=== PATIENT | male | born 1970 | race Caucasian/White ===

== ENCOUNTER 2018-07-31 06:56 | Emergency (ER) | payer BC ==
[~2018-07-31] VITALS: Ht 190.5 cm; Wt 97.5 kg
[2018-07-31 08:02] LABS: BASO % 0.2 % (0.0-1.0); EOS # 0.1 10*3/uL (0.0-0.4); EOS % 1.9 % (1.0-4.0); HEMATOCRIT 47.8 % (42.0-52.0); HEMOGLOBIN 17.1 g/dl (14.0-18.0); LYMPH % 17.6 % (27.0-41.0); MEAN CELL VOLUME 90.5 fl (80.0-94.0); MEAN CORPUSCULAR HGB 32.4 pg (27.0-31.0); MEAN CORPUSCULAR HGB CONC 35.8 g/dl (33.0-37.0); MEAN PLATELET VOLUME 10.6 fl (9.6-12.3); MONO # 0.5 10*3/uL (0.1-1.0); MONO % 9.2 % (3.0-9.0); NEUT # 4.1 10*3/uL (2.3-7.9); NEUT % 70.9 % (47.0-73.0); PLATELET COUNT AUTOMATED 183 10*3/uL (130-400); RED BLOOD COUNT 5.28 10*6/uL (4.50-5.90); RED CELL DISTRI WIDTH 12.5 % (0-14.5); WHITE BLOOD COUNT 5.8 10*3/uL (4.8-10.8)
[2018-07-31 08:19] LABS: ALBUMIN 4.3 gm/dl (3.1-4.5); ALKALINE PHOSPHATASE 69 U/L (45-117); BUN 10 mg/dl (7-24); CHLORIDE 105 mmol/L (98-107); CREATININE 0.82 mg/dL (0.70-1.30); LIPASE 234 U/L (73-393); POTASSIUM 4.2 mmol/L (3.5-5.1); SGOT/AST 20 IU/L (3-35); SGPT/ALT 32 U/L (12-78); SODIUM 139 mmol/L (136-145)
[2018-07-31] MEDS ORDERED: ZOFRAN ODT4 MG SL (09:32)
[2018-07-31] MEDS ORDERED: Motrin,Rufen800 MG PO (09:32)
== END 2018-07-31 09:44 | disposition home or self-care (01) ==
LOC: ED 06:56
PROVIDERS: Emergency Medicine
DX: H10.9 Unspecified conjunctivitis (principal); B34.9 Viral infection, unspecified

== ENCOUNTER → 2020-09-14 | Outpatient (CLI) | payer SELFPAY ==
[~2020-09-14] MED LIST: Motrin,Rufen800 MG PO; ZOFRAN ODT4 MG SL
== END | disposition home or self-care (01) ==
LOC: COVID19 12:56
PROVIDERS: ATTEND Family Medicine
DX: Z20.828 Contact with and (suspected) exposure to other viral communicable diseases (principal)

== ENCOUNTER → 2021-05-30 | Outpatient (CLI) | payer OTHER | END | disposition home or self-care (01) | LOC: COVID19 16:41 | PROVIDERS: ATTEND Internal Medicine | DX: Z11.52 Encounter for screening for COVID-19 (principal) ==

== ENCOUNTER 2023-01-25 04:46 | Emergency (ER) | payer OTHER ==
[~2023-01-25] VITALS: Ht 190.5 cm; Wt 90.7 kg
[2023-01-25] MEDS ORDERED: DIAZEPAM5 MG PO (04:53)
[2023-01-25] MEDS ORDERED: HYDROCODONE-AC1 EAC1 PO (06:11)
== END 2023-01-25 06:15 | disposition home or self-care (01) ==
LOC: ED 04:46
DX: S05.01XA Injury of conjunctiva and corneal abrasion without foreign body, right eye, initial encounter (principal); X58.XXXA Exposure to other specified factors, initial encounter; Y93.89 Activity, other specified; Y92.89 Other specified places as the place of occurrence of the external cause; Y99.8 Other external cause status

== ENCOUNTER 2023-03-14 07:45 | Emergency (ER) | payer OTHER ==
[~2023-03-14] VITALS: Ht 190.5 cm; Wt 90.7 kg
[~2023-03-14 07:45] MED LIST changes: +DIAZEPAM5 MG PO; +HYDROCODONE-AC1 EAC1 PO
[2023-03-14] MEDS ORDERED: MELOXICAM15 MG PO (08:21)
== END 2023-03-14 08:40 | disposition home or self-care (01) ==
LOC: ED 07:45
DX: S63.91XA Sprain of unspecified part of right wrist and hand, initial encounter (principal); X58.XXXA Exposure to other specified factors, initial encounter; Y93.89 Activity, other specified; Y92.89 Other specified places as the place of occurrence of the external cause; Y99.8 Other external cause status

== ENCOUNTER 2023-07-06 10:26 | Emergency (ER) | payer OTHER ==
[~2023-07-06] VITALS: Ht 190.5 cm; Wt 90.7 kg
[~2023-07-06 10:26] MED LIST changes: +MELOXICAM15 MG PO
[2023-07-06] MEDS ORDERED: VALIUM5 MG PO (11:00)
[2023-07-06] MEDS ORDERED: PROPRANOLOL HCL10 MG PO (11:01)
[2023-07-06] MEDS ORDERED: HYDROCODONE-AC1 EAC1 PO (11:12)
== END 2023-07-06 11:35 | disposition home or self-care (01) ==
LOC: ED 10:26
DX: M54.42 Lumbago with sciatica, left side (principal); M79.605 Pain in left leg

== ENCOUNTER 2025-02-09 20:45 | Emergency (ER) | payer SELFPAY ==
[~2025-02-09] VITALS: Ht 177.8 cm; Wt 86.2 kg
[~2025-02-09 20:45] MED LIST changes: +PROPRANOLOL HCL10 MG PO; +VALIUM5 MG PO
[2025-02-09] MEDS ORDERED: SODIUM CHLORIDE 0.9% 1,000 ML IV ONE (20:50)
[2025-02-09] MEDS ORDERED: diphenhydrAMINE hydrochloride 50 MG/ML VIAL IV ONE (20:50)
[2025-02-09] MEDS ORDERED: Ketorolac Tromethamine 30 MG/ML VIAL IV ONE (20:50)
[2025-02-09] MEDS ORDERED: Ondansetron Hydrochloride 4 MG/2 ML VIAL IV ONE (20:50)
[2025-02-09] MEDS ORDERED: HYDROmorphone Hydrochloride 1 MG/ML SYR IV ONE (23:10)
== END 2025-02-10 | disposition home or self-care (01) ==
LOC: ED 20:45
DX: R51.9 Headache, unspecified (principal); M79.2 Neuralgia and neuritis, unspecified; R11.0 Nausea; H53.149 Visual discomfort, unspecified; Z79.899 Other long term (current) drug therapy

== ENCOUNTER → 2025-07-31 | Outpatient (CLI) | payer OTHER ==
[2025-07-31 09:37] LABS: BASO # 0.0 10*3/uL (0.0-0.1); BASO % 0.6 % (0.0-1.0); EOS # 0.2 10*3/uL (0.0-0.4); EOS % 4.4 % (1.0-4.0); MEAN CELL VOLUME 92.7 fl (80.0-94.0); MEAN CORPUSCULAR HGB 32.3 pg (27.0-31.0); MEAN PLATELET VOLUME 9.4 fl (9.6-12.3); MONO # 0.6 10*3/uL (0.1-1.0); MONO % 11.7 % (3.0-9.0); NEUT # 3.3 10*3/uL (2.3-7.9); NEUT % 60.2 % (47.0-73.0); NUCLEATED RED BLOOD CELL 0.0 % (0.0-0.0); NUCLEATED RED BLOOD CELL 0.0 10*3/uL (0.0-0.0); PLATELET COUNT AUTOMATED 222 10*3/uL (130-400); RED CELL DISTRI WIDTH 13.9 % (0-14.5)
[2025-07-31 15:01] LABS: BF LYMPHOCYTES 5 %; BF MACROPHAGES 20 %; BF NEUTROPHILS 73 %
[2025-08-01 16:07] LABS: ACID FAST SPEC PROCESSING Direct Inoculation (.)
== END ==
LOC: LAB 09:02
PROVIDERS: ATTEND Orthopaedic Surgery
DX: M25.462 Effusion, left knee (principal)